=== PATIENT | female | born 1975 | race Caucasian/White ===

== ENCOUNTER 2017-03-05 20:02 | Emergency (ER) | payer BC ==
[2017-03-05] MEDS ORDERED: NORMAL SALINE 2,000 ML IV ONE (20:48)
[2017-03-05] MEDS ORDERED: ONDANSETRON HCL 4 MG/2 ML VIAL ONE (20:48)
[2017-03-05] MEDS ORDERED: LORazepam 1 MG TABLET ONE ×2 (20:48→21:44)
--- NOTE | 2017-03-05 21:38 | ER NURSING DOCUMENTATION ---
Nurse's Notes [facility] Name:Alka Ellis Age:41 yrs Sex:Female :1975 Arrival Date:03/05/2017 Time:20:02 Bed1 Private MD: Diagnosis:Panic Disorder;Anxiety Reaction;Dehydration Presentation: 03/05 20:03 Acuity: HEIKE 3 bw2 20:07 Presenting complaint: Patient states: she has had increased anxiety since Friday. pt bw2 states she has a history of anxiety. pt denies one event happened that evelated her anxiety. pt denies thoughts of wanting to hurt herself or others. Transition of care: patient was not received from another setting of care. 20:07 Method Of Arrival: Walk In [facility] Triage Assessment: 20:09 General: Appears in no apparent distress, Behavior is anxious, appropriate for age, bw2 cooperative. Pain: Denies pain. Historical: - Allergies: Compazine; - Tetanus: < 10 years. - Ebola Screening: : Patient negative for fever greater than or equal to 101.5 degrees Fahrenheit, and additional compatible Ebola Virus Disease symptoms. Patient denies exposure to infectious person. Patient denies travel to an Ebola-affected area in the 21 days before illness onset. No symptoms or risks identified at this time. . - Immunization history: Flu Vaccine < 1 year. - Social history: Smoking status: Patient states was never smoker of tobacco. Screenin:10 Infectious Disease Risk None. Abuse screen: Denies threats or abuse. Nutritional bw2 screening: No deficits noted. Suicide Risk Assessment: Suicidal Thinking Present - No ( 0 points), Past Attempts - No (0 points), Family History of Suicide - No (0 points), Credible Suicide Plan - No (0 points), Means to Kill Self Available - No (0 points), Has Serious Health Problem - No ( 0 points), Lives Alone - No (0 points), Will Contract for Safety - Yes (0 points). Assessment: 20:10 See Triage Assessment done by same RN. bw2 Vital Signs: 20:10 BP 120 / 66; Pulse 72; Resp 18; Temp 98.5(O); Pulse Ox 97% on R/A; Weight 58.97 kg; bw2 Height 5 ft. 4 in. (162.56 cm); Pain 0/10; 21:36 BP 128 / 62; Pulse 70; Resp 18; Pulse Ox 98% on R/A; bw2 20:10 Body Mass Index 22.31 (58.97 kg, 162.56 cm) bw2 Cosme Coma Score: 20:32 Eye Response: spontaneous(4). Verbal Response: oriented(5). Motor Response: obeys cd commands(6). Total: 15. ED Course: 20:03 Patient arrived in ED. em3 20:03 Shonna Salcedo is Primary Nurse. bw2 20:03 Triage completed. bw2 20:07 Seven Luna MD is Attending Physician. cd 20:12 Valuables Remains with patient Side rails up X2. bw2 Administered Medications: 20:39 Drug: Ativan 1 mg; Route: PO; bw2 21:20 Follow up: Response: No adverse reaction bw2 20:40 Drug: NS 0.9% 2000 ml; Route: IV; Rate: bolus; Site: right antecubital; bw2 21:33 Follow up: IV Status: Completed infusion bw2 20:40 Drug: Zofran 4 mg; Route: IVP; Infused Over: 2 mins; Site: right antecubital; bw2 21:20 Follow up: Response: Nausea is decreased bw2 21:34 Drug: Ativan 1mg 1 mg; Route: Sublingual; bw2 21:34 Follow up: Response: Pharmacy closed - take home med pack bw2 Outcome: 21:26 Discharge ordered by . cd 21:36 Discharged to home ambulatory, with family. bw2 21:36 Condition: improved 21:36 Discharge Assessment: Patient awake, alert and oriented x 3. No cognitive and/or functional deficits noted. Patient verbalized understanding of disposition instructions. 21:37 Instructed on follow up and referral plans. medication usage, Demonstrated bw2 understanding of instructions. 21:37 Patient left the ED. bw2 Signatures: Seven Luna MD MD cd Meiklejohn, Eric em3 Shonna Salcedo bw2
--- NOTE | 2017-03-05 21:38 | ER PHYSICIAN DOCUMENTATION ---
Physician Documentation [facility] Name:Alka Ellis Age:41 yrs Sex:Female :1975 Arrival Date:03/05/2017 Time:20:02 Bed1 Private MD: Seven Aranda Disposition: 03/05/17 21:26 Discharged to Home/Self Care. Impression: Panic Disorder, Anxiety Reaction, Dehydration. - Condition is Good. - Discharge Instructions: DEHYDRATION (6y-Adult), HYPERVENTILATION SYNDROME, Anguish - ANXIETY REACTION. - Medical Reconciliation form form. - Follow up: Private Physician; When: 7 - 10 days; Reason: Recheck today's complaints, Continuance of care. - Problem is new. - Symptoms have improved. - Notes: Drink 2 - 3 quarts of water every day. Eat three meals a day. Take Benadryl 50mg by mouth every night before bed to help you sleep. Take Ativan 1mg under tongue every 6 hours as needed for anxiety (Dispense four 1mg tabs) Rest. Read Charlie Ramirez's book "Your Erroneous Zones". HPI: 03/05 20:26 This 41 yrs old Female presents to ER via Walk In with complaints of Anxiety. cd 20:26 The patient presents to the emergency department with anxiety, over worries. Patient kristopher has a history of Anxiety for 15 years. She has been having an anxiety attack since arriving to [place] 2 days ago. She has had little to eat or drink, feels dehydrated and presented to the ED hyperventilating. She called her physician in [place] and he called in [facility] for her. She has had insomnia and she finds that her anxiety is worse when she does not get sleep. She denies suicide ideation, hallucinations, delusions, fever, chills, chest pain or abdominal pain.. Onset: The symptom(s)/episode began/occurred acutely, 2 day(s) ago, and became worse today. Past psychiatric history: Prior diagnosis: depression, anxiety, Psychiatric medications include: Klonipin, Zoloft, Primary psychiatric physician: the patient's psychiatric physician is not known. Associated signs and symptoms: Pertinent positives; anxiety, depression, Pertinent negatives: abdominal pain, chest pain, delusions, fever, headache, homicidal ideation, shortness of breath, substance abuse, vomiting. Severity of symptoms: At their worst the symptoms were moderate in the emergency department the symptoms are unchanged. The patient has experienced similar episodes in the past. Historical: - Allergies: Compazine; - Tetanus: < 10 years. - Ebola Screening: : Patient negative for fever greater than or equal to 101.5 degrees Fahrenheit, and additional compatible Ebola Virus Disease symptoms. Patient denies exposure to infectious person. Patient denies travel to an Ebola-affected area in the 21 days before illness onset. No symptoms or risks identified at this time. . - Immunization history: Flu Vaccine < 1 year. - Social history: Smoking status: Patient states was never smoker of tobacco. ROS: 20:32 ENT: Negative for injury, pain, epistaxis and discharge. cd Neck: Negative for injury, pain, stiffness and swelling. Cardiovascular: Negative for chest pain, palpitations, edema and pleuritic pain. Respiratory: Negative for shortness of breath, dyspnea on exertion, cough, sputum production, wheezing, hemoptysis and pleuritic chest pain. Abdomen/GI: Negative for abdominal pain, nausea, vomiting, diarrhea, constipation, distension, melena, hematochezia and hematemesis. Back: Negative for injury, pain or muscle spasms. MS/Extremity: Negative for injury, deformity, edema, calf tenderness, pain or coldness. Skin: Negative for injury, rash, itching and discoloration. 20:32 Neuro: Negative for headache, weakness, numbness, tingling, and seizure. cd 20:32 Constitutional: Positive for poor PO intake, Negative for chills, fever. 20:32 Psych: Positive for anxiety, depression, insomnia, Negative for drug dependence, alcohol dependence, auditory hallucinations, visual hallucinations, homicidal ideation, suicide gesture, suicidal ideation. 20:32 All other systems are negative. Exam: ENT: Nares patent. No nasal discharge, no septal abnormalities noted. Tympanic membranes are normal and external auditory canals are clear. Oropharynx with no redness, swelling, or masses, exudates, or evidence of obstruction, uvula midline. Mucous membranes dry Cardiovascular: Regular rate and rhythm with a normal S1 and S2. No gallops, murmurs, or rubs. Normal PMI, no JVD. No pulse deficits. Respiratory: Lungs have equal breath sounds bilaterally, clear to auscultation and percussion. No rales, rhonchi or wheezes noted. No increased work of breathing, no retractions or nasal flaring. Abdomen/GI: Soft, non-tender, with normal bowel sounds. No distension or tympany. No guarding or rebound. No evidence of tenderness throughout. Back: No spinal tenderness. No costovertebral tenderness. Full range of motion. Skin: Warm, dry with normal turgor. Normal color with no rashes, no lesions, and no evidence of cellulitis. MS/ Extremity: Pulses equal, no cyanosis. Neurovascular intact. Full, normal range of motion. 20:32 Neuro: Awake and alert, GCS 15, oriented to person, place, time, and situation. cd Cranial nerves II-XII grossly intact. Motor strength 5/5 in all extremities. Sensory grossly intact. Cerebellar exam normal. Normal gait. 20:32 Constitutional: The patient appears alert, awake, non-diaphoretic, non-toxic, well developed, well nourished, anxious. 20:32 Psych: Behavior/mood is pleasant, cooperative, anxious, Affect is flat, Oriented to person, place, time, Patient has no thoughts/intents to harm self or others. Judgement / Insight is normal. Memory is normal. Delusions/hallucinations are not present. Vital Signs: 20:10 BP 120 / 66; Pulse 72; Resp 18; Temp 98.5(O); Pulse Ox 97% on R/A; Weight 58.97 kg; bw2 Height 5 ft. 4 in. (162.56 cm); Pain 0/10; 21:36 BP 128 / 62; Pulse 70; Resp 18; Pulse Ox 98% on R/A; bw2 20:10 Body Mass Index 22.31 (58.97 kg, 162.56 cm) bw2 Cosme Coma Score: 20:32 Eye Response: spontaneous(4). Verbal Response: oriented(5). Motor Response: obeys cd commands(6). Total: 15. MDM: 20:07 Patient medically screened. cd 20:15 Data interpreted: Pulse oximetry: on room air is 99 %. Interpretation: normal. cd 20:33 Differential diagnosis: depression, Panic Attack, Hyperventilation Syndrome, cd Dehydration. 20:34 Data reviewed: vital signs, nurses notes, old medical records, and as a result, I will cd continue to observe the patient, administer IV fluids, NS bolus, NS maintenence, prescribe sedation medication, lorazepam. 21:25 Medication response: The patient's symptoms have improved, after Ativan and IV Fluids. cd 21:25 Counseling: I had a detailed discussion with the patient and/or guardian regarding: the cd historical points, exam findings, and any diagnostic results supporting the discharge/admit diagnosis, the need for outpatient follow up, for a recheck, with the patient's primary care provider, to return to the emergency department if symptoms worsen or persist or if there are any questions or concerns that arise at home. Dispensed Medications: 20:39 Drug: Ativan 1 mg; Route: PO; bw2 21:20 Follow up: Response: No adverse reaction bw2 20:40 Drug: NS 0.9% 2000 ml; Route: IV; Rate: bolus; Site: right antecubital; bw2 21:33 Follow up: IV Status: Completed infusion bw2 20:40 Drug: Zofran 4 mg; Route: IVP; Infused Over: 2 mins; Site: right antecubital; bw2 21:20 Follow up: Response: Nausea is decreased bw2 21:34 Drug: Ativan 1mg 1 mg; Route: Sublingual; bw2 21:34 Follow up: Response: Pharmacy closed - take home med pack bw2 Signatures: Seven Luna MD MD cd Wisely, Beth bw2
== END 2017-03-05 21:38 | disposition home or self-care (01) ==
LOC: ER 20:02
DX: F41.0 Panic disorder [episodic paroxysmal anxiety] (principal); F41.9 Anxiety disorder, unspecified; E86.0 Dehydration; F32.9 Major depressive disorder, single episode, unspecified; G47.00 Insomnia, unspecified
CPT/HCPCS: 96361; 96374; 99283; J2405; J7030